=== PATIENT | female | born 1935 | race Caucasian/White ===

== ENCOUNTER 2018-07-12 11:14 | Emergency (ER) | payer OTHER ==
[~2018-07-12] VITALS: Ht 154.9 cm; Wt 66.7 kg
--- NOTE | 2018-07-12 12:16 | RADIOLOGY REPORT ---
EXAMINATION: XR KNEE, RIGHT CLINICAL INFORMATION: Right knee pain and swelling COMPARISON: Radiographs of the right leg from 03/06/2011 TECHNIQUE: Four views of the right knee. FINDINGS: Mild edema in subcutaneous tissues of the visualized lower thigh and knee. Moderate knee joint effusion is present. Bones appear diffusely osteoporotic. Mild loss of the medial tibiofemoral joint space. Prominent marginal osteophytes at the degenerated medial and lateral tibiofemoral compartments. Also, subchondral cystic change and osteophyte formation of the moderately degenerated patellofemoral joint. IMPRESSION: 1. No acute osseous injury at the right knee. 2. Khru-xe-wseipogu tricompartmental osteoarthritis and moderate knee joint effusion. 3. Bones appear diffusely osteoporotic.
--- NOTE | 2018-07-12 12:47 | ED GENERAL ADULT ---
History of Present Illness General Chief Complaint: Lower Extremity Problems Stated Complaint: RT KNEE SWELLING Source: patient Exam Limitations: no limitations Allergies Coded Allergies: No Known Allergies (07/12/18) Reconcile Medications Diclofenac Sodium (Voltaren) 1 % GEL..GRAM. 1 GM TOP 4 TIMES/DAY PRN KNEE PAIN apply to affected area(s) Triage Note: PT TO ED C/O RIGHT KNEE SWELLING X FEW DAYS. C/O PAIN WITH AMBULATION. TRIED TYLENOL WITH SOME RELIEF. DENIES INJURY. MEDICATED PER EMAR. Triage Nurses Notes Reviewed? yes Onset: Abrupt Duration: day(s): (2-3), constant, continues in ED, getting worse Timing: single episode today Injury Environment: home Severity: mild, moderate Severity Numbers: 6 No Modifying Factors: none LMP (ages 10-50): unknown : No HPI: 82-year-old female history of osteoarthritis presents for evaluation of right knee pain. Patient reports that her knee became painful and swollen starting a few days ago gradually got worse. The pain is located diffusely in the anterior knee. There is no trauma or triggering event. Patient reports a long history of pain in this knee she had the knee drained and had a steroid injection done 6 months ago. She had some relief and then the pain returned. Patient has been taking Tylenol with mild improvement. She denies any fever or redness. The pain is worse with walking she is able to bear weight. No ankle pain or hip pain no numbness or tingling. (Chino Valencia) Vital Signs & Intake/Output Vital Signs & Intake/Output ED Intake and Output 07/13 0000 07/12 1200 Intake Total 0 Output Total Balance 0 Intake, Oral 0 Patient 147 lb Weight Weight Estimated Measurement Method (Ana Rosa RENEE,Kvng Strauss) Past History Travel History Traveled to [place] past 21 day No Medical History Any Pertinent Medical History? see below for history Musculoskeletal: arthritis Surgical History Surgical History: non-contributory Psychosocial History Tobacco Use: Never used Family History Hx Contributory? No (Chino Valencia) Review of Systems Review of Systems Constitutional: Reports: no symptoms. EENTM: Reports: no symptoms. Respiratory: Reports: no symptoms. Cardiovascular: Reports: no symptoms. GI: Reports: no symptoms. Genitourinary: Reports: no symptoms. Musculoskeletal: Reports: joint pain, joint swelling. Skin: Reports: no symptoms. Neurological/Psychological: Reports: no symptoms. Hematologic/Endocrine: Reports: no symptoms. Immunologic/Allergic: Reports: no symptoms. All Other Systems: Reviewed and Negative (Chino Valencia) Physical Exam Physical Exam General Appearance: well developed/nourished, no apparent distress, alert, awake Head: atraumatic, normal appearance Eyes: Bilateral: normal appearance, PERRL, EOMI. Ears, Nose, Throat: hearing grossly normal Neck: normal inspection, supple, full range of motion Respiratory: no respiratory distress Cardiovascular: normal peripheral pulses Peripheral Pulses: 2+ radial (R), 2+ radial (L) Gastrointestinal: soft, non-tender Back: normal inspection, normal range of motion, no vertebral tenderness Extremities: normal range of motion, THERE IS MILD DIFFUSE SWELLING OF THE RIGHT KNEE. fULL RANGE OF MOTION OF THE RIGHT KNEE IS INTACT. tHERE IS TENDERNESS TO PALPATION IN THE AREA OF THE PATELLA. nO BRUISING OR ABRASIONS. nO ERYTHEMA. nO CALF SWELLING OR TENDERNESS FULL RANGE OF MOTION OF THE RIGHT KNEE AND RIGHT HIP IS INTACT PATIENT IS ABLE TO WALK AND BEAR WEIGHT Neurologic/Psych: no motor/sensory deficits, awake, alert, oriented x 3, normal gait, normal mood/affect Skin: intact, normal color, warm/dry Core Measures ACS in differential dx? No CVA/TIA Diagnosis: No Sepsis Present: No Sepsis Focused Exam Completed? No (Chino Valencia) Progress Differential Diagnoses I considered the following diagnoses in my evaluation of the patient: [ Osteoarthritis, knee effusion, septic arthritis, bursitis, sprain, Lyme disease] Plan of Care: Patient is here for evaluation of right knee pain. She has a long history of this pain. This current episode started 2 or 3 days ago without trauma or triggering event. No signs of infection on exam. X-rays are negative for fracture. Patient was medicated with Tylenol and is feeling better she is able to bear weight. She'll be given a prescription for Voltaren gel to go home with. Follow-up with orthopedics discussed return precautions case discussed with DR SABILLON HE agrees Diagnostic Imaging: Viewed by Me: Radiology Read. Discussed w/RAD: Radiology Read. Radiology Impression: PATIENT: PRABHAKAR GALEANA PRESENT AGE: 82 PATIENT ACCOUNT NO: [id number] : 35 LOCATION: [facility] ORDERING PHYSICIAN: Chino CAHWLA SERVICE DATE: 07/12/18 EXAM TYPE: RAD - XRY-KNEE COMPLETE RIGHT EXAMINATION: XR KNEE, RIGHT CLINICAL INFORMATION: Right knee pain and swelling COMPARISON: Radiographs of the right leg from 03/06 TECHNIQUE: Four views of the right knee. FINDINGS: Mild edema in subcutaneous tissues of the visualized lower thigh and knee. Moderate knee joint effusion is present. Bones appear diffusely osteoporotic. Mild loss of the medial tibiofemoral joint space. Prominent marginal osteophytes at the degenerated medial and lateral tibiofemoral compartments. Also, subchondral cystic change and osteophyte formation of the moderately degenerated patellofemoral joint. IMPRESSION: 1. No acute osseous injury at the right knee. 2. Vfhp-se-bhlgwhts tricompartmental osteoarthritis and moderate knee joint effusion. 3. Bones appear diffusely osteoporotic. DICTATED BY: Mitch Crockett MD DATE/TIME DICTATED:07/12/181208 GEOPHYSICAL PROSPECTING PERMIT AGENT:LUIS DATE/TIME TRANSCRIBED:07/12/181208 CONFIDENTIAL, DO NOT COPY WITHOUT APPROPRIATE AUTHORIZATION. <Electronically signed in Other Vendor System> Initial ED EKG: none (Deangelo CHAWLA,[place]ino) Departure Departure Disposition: HOME OR SELF CARE Condition: Stable Clinical Impression Primary Impression: Right knee pain Qualifiers: Chronicity: acute Qualified Code: M25.561 - Pain in right knee Referrals: William Brito MD (PCP/Family) Additional Instructions: Rest, keep your knee elevated. Apply Jonathan wrap. Apply ice for 15-20 minutes every few hours. Continue to use Tylenol 1000 mg every 6 hours as needed for pain. Voltaren gel can also be used topically. Make a follow-up with your orthopedic surgeon as soon as possible monitoring her symptoms return with any concerns. Please go over all results of today's visit with your primary care doctor. Contact your primary care doctor to let them know you were here in the emergency room. There may be nonspecific findings which may not be related to your visit today here in the emergency room but may require further evaluation and chronic monitoring by your primary care doctor. If you had a laceration today the chance of foreign body always remains. You should follow-up with your primary care doctor for recheck in 3-5 days for a wound check. If you had an x-ray done there is a chance that a fracture could have been missed on initial read and you should follow-up with your primary care doctor for repeat x-rays if symptoms persist. If your blood pressure was elevated here in the emergency room please have rechecked by her primary care doctor within the next 48 hours by your primary care doctor. If you were prescribed a narcotic here in the emergency room or any type of controlled substances you're not allowed to drive while taking this medication or operate any type of heavy machinery. Narcotics can make you feel lightheaded dizziness nausea and can cause constipation. You may need to greens picker a stool softener. Thank you for choosing [facility] emergency room. Please return to the emergency room immediately if you have any other concerns worsening of symptoms. Departure Forms: Customer Survey General Discharge Information Prescriptions: Current Visit Scripts Diclofenac Sodium (Voltaren) 1 GM TOP 4 TIMES/DAY PRN KNEE PAIN #1 TUBE apply to affected area(s) (Chino Valencia) PA/NEW AUTOS DELIVERY DRIVER Co-Sign Statement Statement: ED Attending supervision documentation- [x] I saw and evaluated the patient. I have also reviewed all the pertinent lab results and diagnostic results. I agree with the findings and the plan of care as documented in the PA's/NEW AUTOS DELIVERY DRIVER's documentation. pt presents with right knee pain and swelling similar to prior episodes of arthritis. exam reveals right knee effusion clinically without erythema or warmth. [] I have reviewed the ED Record and agree with the PA's/NEW AUTOS DELIVERY DRIVER's documentation. [] Additions or exceptions (if any) to the PAs/NEW AUTOS DELIVERY DRIVER's note and plan are summarized below: [] (Ana Rosa RENEE,Kvng Strauss) Critical Care Note Critical Care Note Critical Care Time: non-applicable (Chino Valencia)
[2018-07-12 13:13] VITALS: BP 138/72
[2018-07-12] MEDS ORDERED: VOLTAREN100 GM TOP (13:19)
== END 2018-07-12 13:14 ==
LOC: ERH 11:14
DX: M25.561 Pain in right knee (principal)
CPT/HCPCS: 73562-RT